=== PATIENT | female | born 1965 | race Caucasian/White ===

== ENCOUNTER 2020-02-23 07:55 | Outpatient (RCR) | payer BC, SELFPAY ==
--- NOTE | 2020-02-23 09:12 | PTOPEVAL ---
Thank you for referring Montse Tiw[facility] to [facility] The patient is scheduled to be seen for therapy? __2_x/week for 12 vis. Please review, sign, date and return this plan of care SOHA. I agree with and certify that the following plan of care is medically necessary. Referring Physician Date Admitting Provider: Attending Provider: TREY THOMAS Referring Provider: *PT Outpatient Evaluation Start: 02/23/20 07:56 Freq: Status: Active Protocol: Document 02/23/20 07:56 MARILYNN (Rec: 02/23/20 08:58 MARILYNN [id number]) Therapy Assessment Status Assessment Status Assessment Status Evaluation Evaluation Information Problem Diagnosis s/p ORIF left ankle Onset 12/23/19 Subjective Information Pt. reports that she was going Query Text:As Reported By Patient/ into work and stepped on an Family object. She fell and broke the ankle and had surgery the same day. She states that she has been NWB until . She reports that she has a scooter she uses outside the home and has been putting a littel weight through the leg in the home. She reports that the longest duration she has been upright is about 5 minutes. Pt. reports that she was walking or riding a bike daily before her injury. She reports that her goal is to return to walking normally. 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 Activity of Daily Living Ability Independent Indoor/Home Mobility Independent Community Mobility Independent Stairs Ability Independent Functional Cognition (Planning, Shopping Independent , Taking Medications) Cooking Yes Cleaning Yes Laundry Yes Shopping Yes Driving Yes Pain Assessment Timing of Pain Assessment Timing of Pain Assessment Pre-Treatment Pain Scale Pain Scale Used Numeric (1 - 10) Self Report Pain Assessment Left Ankle(s) Reported Pain Level 0 Pain Description Aching Pain Frequency Intermittent Lowest Pain Intensity 0 Greatest Pain Intensity 4 Pain Aggravating Factors Walking,Weight Bear
--- NOTE | 2020-02-23 09:13 | PTOPEVAL ---
Thank you for referring Montse Tiwari to [facility].? The patient is scheduled to be seen for therapy? __2__x/week for 12 visits. Please review, sign, date and return this plan of care SOHA. I agree with and certify that the following plan of care is medically necessary. Referring Physician Date Admitting Provider: Attending Provider: TREY THOMAS Referring Provider: *PT Outpatient Evaluation Start: 02/23/20 07:56 Freq: Status: Active Protocol: Document 02/23/20 07:56 MARILYNN (Rec: 02/23/20 08:58 MARILYNN [email or web address]) Therapy Assessment Status Assessment Status Assessment Status Evaluation Evaluation Information Problem Diagnosis s/p ORIF left ankle Onset 12/23/19 Subjective Information Pt. reports that she was going Query Text:As Reported By Patient/ into work and stepped on an Family object. She fell and broke the ankle and had surgery the same day. She states that she has been NWB until . She reports that she has a scooter she uses outside the home and has been putting a littel weight through the leg in the home. She reports that the longest duration she has been upright is about 5 minutes. Pt. reports that she was walking or riding a bike daily before her injury. She reports that her goal is to return to walking normally. 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
--- NOTE | 2020-03-31 08:42 | PTOPEVAL ---
Thank you for referring Montse Tiwari to [facility].? The patient is scheduled to be seen for therapy? __2__x/week for 5 visits. Please review, sign, date and return this plan of care SOHA. I agree with and certify that the following plan of care is medically necessary. Referring Physician Date Admitting Provider: Attending Provider: TREY THOMAS Referring Provider: *PT Outpatient Evaluation Start: 02/23/20 07:56 Freq: Status: Active Protocol: Document 03/31/20 07:25 MARILYNN (Rec: 03/31/20 08:42 MARILYNN [email or web address]) Therapy Assessment Status Assessment Status Assessment Status Re-evaluation Evaluation Information Problem Diagnosis s/p ORIF left ankle Subjective Information Pt. reports that her pain is Query Text:As Reported By Patient/ minimal. She states that she Family still feels stiffness with described dorsiflexion. She reports that she would like to continue to attempt to improve ROM in the left ankle. Pain Assessment Timing of Pain Assessment Timing of Pain Assessment Pre-Treatment Pain Scale Pain Scale Used Numeric (1 - 10) Self Report Pain Assessment Left Ankle(s) Reported Pain Level 1 Pain Score Pain Score 1: Self Report Interventions Used Interventions Used By Clinicians Activity or ADL's,Exercise Lower Extremity Range of Motion General Lower Extremity Range of Motion Gross Lower Extremity Range of Motion left ankle dorsiflexion AROM - Comments 3 degrees left ankle plantarflexion AROM 59 degrees left ankle inversion AROM 39 degrees left ankle eversion AROM 9 degrees Pt. presents with bony end feel with passive ankle dorsiflexion on this date. Gait Assessment Gait Assessment Additional Ambulation Comments Pt. ambulates over level surface demonstrating compensatory hip rotation during left stance phase due to lack of adequate dorsiflexion on the left. Stair Climbing Assessment Stair Climbing Assessment Stair Climbing Comments Pt. continues to demonstrate inability to accurately descend steps leading with the right l.e. due to inadequate ankle dorsiflexion AROM. General Exercise General Exercises
--- NOTE | 2020-04-20 09:05 | PTOPEVAL ---
Thank you for referring Montse Tiwari to [facility].? The patient is scheduled to be seen for therapy? ____x/week for ___ weeks. Please review, sign, date and return this plan of care SOHA. I agree with and certify that the following plan of care is medically necessary. Referring Physician Date Admitting Provider: Attending Provider: TREY THOMAS Referring Provider: KAPIL Outpatient Evaluation Start: 02/23/20 07:56 Freq: Status: Active Protocol: Document 04/20/20 07:31 ACR (Rec: 04/20/20 08:59 ACR [email or web address]) Therapy Assessment Status Assessment Status Assessment Status Discharge Evaluation Information Problem Diagnosis L ORIF of ankle Subjective Information Patient states that she is Query Text:As Reported By Patient/ about 60-70% improved since Family the beginning of therapy. She states she continues to have difficulty navigating the stairs and walking longer distances. She states that she doesn't trust her balance enough to get on her bike at the moment. Patient states that she would like to continue her exercises at home for a bit since she is seeing progress. Pain Assessment Timing of Pain Assessment Timing of Pain Assessment Assessment Pain Scale Pain Scale Used Numeric (1 - 10) Self Report Pain Assessment Left Ankle(s) Reported Pain Level 1 Greatest Pain Intensity 2 Pain Score Pain Score 1: Self Report Interventions Used Interventions Used By Clinicians Activity or ADL's,Education, Exercise Lower Extremity Range of Motion Ankle/Foot Range of Motion Left Ankle Dorsiflexion With Knee Extension 4 Range of Motion - Active Ankle Dorsiflexion With Knee Extension 6 Range of Motion - Passive Ankle Plantarflexion Range of Motion - 59 Active Query Text: Ankle Eversion Range of Motion - Active 20 Ankle Inversion Range of Motion - Active 35 Lower Extremity Muscle Strength Testing General Lower Extremity Strength Gross Lower Extremity Strength L ankle DF: 4+/5 L ankle PF: 5/5 L ankle inversion 4+/5 L ankle eversion 4+/5 Gait Assessment Gait Assessment Additional Ambulation Comments Patient ambulates 1000 ft with no AD, slower charanjit, but no antalgia. She has a good st
== END 2020-04-20 10:40 | disposition home or self-care (01) ==
LOC: CHSPT 07:55
DX: S82.852D Displaced trimalleolar fracture of left lower leg, subsequent encounter for closed fracture with routine healing (principal)
CPT/HCPCS: 97110; 97112; 97116; 97140; 97161

== ENCOUNTER 2024-10-22 08:13 | Emergency (ER) | payer BC, SELFPAY ==
[2024-10-22 08:18] VITALS: BP 182/97; PULSE 114; RESP 20; TEMP 37.4; O2SAT 96
--- NOTE | 2024-10-22 08:18 | ED.URI ---
HPI - URI/Sore Throat General Chief Complaint: Upper Respiratory Infection Stated Complaint: head congestion/cough Time Seen by Provider: 10/22/24 08:25 Source: patient and RN notes reviewed Mode of arrival: ambulatory Limitations: no limitations History of Present Illness HPI Narrative: 59-year-old female presents to the [facility] with complaints of head congestion and a cough since yesterday. Denies fevers. Denies sore throat or ear pain just feels congestion Took 1 dose of NyQuil last night Onset (ago): day(s) (1) Exacerbating factors: nothing Relieving factors: nothing Related Data Allergies Allergy/AdvReac Type Severity Reaction Status Date / Time No Known Allergies Allergy Verified 10/22/24 08:22 Review of Systems Review of Systems: All systems reviewed & are unremarkable except as noted in HPI and below Constitutional: Constitutional: Reports no additional constitutional complaints ENT: Reports as per HPI and Reports nasal congestion Cardiovascular: Cardiovascular: Reports no additional cardiovascular complaints, Denies chest pain and Denies dyspnea Respiratory: Respiratory: Reports as per HPI, Denies chest congestion, Reports cough and Denies dyspnea Musculoskeletal: Musculoskeletal: Reports no additional musculoskeletal complaints Integumentary/Breasts: Skin/Breast: Reports system reviewed and no additional complaints, except as docu PMFSH Comments At the time of my signature, I reviewed and agree with the nursing past medical, surgical, social, and family history. There is no relevant family history pertinent to the patient complaint. Exam Const: General: cooperative, healthy appearing, comfortable, no acute distress, well developed, alert and well nourished Nutritional Appearance: well nourished Orientation/consciousness: patient oriented x3 Limitations: no limitations HENMT: Head: normal to inspection Ears: hearing grossly normal bilaterally, external ears normal, TM's normal bilaterally, EAC's normal, mastoids normal and no periauricular adenopathy Face/Nose/Sinus: Normal external nose present, Normal nares present and No nasal discharge present Mouth: Yes Normal oral and palatal mucosa present, Yes lip normal, Yes tongue normal and Yes moist mucous membranes Throat: posterior oropharynx normal, tonsils normal, uvula midline, postnasal drainage and no uvular edema Eyes: General: appearance normal, both eyes and all related structures Alignment and Position: alignment normal Neck: Neck: normal visual inspection, full ROM, no lymphadenopathy and no meningeal signs Chest: Chest palpation & inspection: normal inspection of the chest Resp: Effort & Inspection: normal respiratory effort and able to speak in complete sentences Auscultation: clear to auscultation bilaterally, no crackles, no rales, no rhonchi and no wheezes Cardio: Rate: regular rate Skin: General skin exam: normal color and no rashes or lesions noted Neuro: General: patient oriented x3, gait normal, moves all extremities and no meningeal signs Cognition (Neuro): normal cognition Speech: normal speech Gait exam (Neuro): Normal gait present Extrem: General: normal to inspection, full ROM, capillary refill normal and normal gait Psych: Appearance: grossly normal and well kempt Mental Status: mental status grossly normal Speech and movement: Normal speech and movement present and Clear speech present Affect: normal affect Attitude: cooperative Course Course Level of Care: Express Care Visit Vital Signs Vital signs: Vital Signs Temperature 99.4 F 10/22/24 08:18 Pulse Rate 114 H 10/22/24 08:18 Respiratory Rate 20 10/22/24 08:18 Blood Pressure 182/97 H 10/22/24 08:18 Pulse Oximetry 96 10/22/24 08:18 Oxygen Delivery Room Air 10/22/24 08:18 Temperature 99.4 F 10/22/24 08:18 Pulse Rate 114 H 10/22/24 08:18 Respiratory Rate 20 10/22/24 08:18 Blood Pressure 182/97 H 10/22/24 08:18 Pulse Oximetry 96 10/22/24 08:18 Oxygen Delivery Room Air 10/22/24 08:18 Reviewed MDM - URI/Sore Throat MDM Narrative Medical decision making narrative: Patient sitting comfortably in exam room. Patient is nontoxic, vitals stable. Patient presents with URI symptoms since yesterday afternoon. No acute findings other than postnasal drainage noted on exam. Discussed elevated blood pressure reading, primary care provider sheets given Patient is appropriate for outpatient treatment with close follow-up Discharge instructions reviewed with patient, as well as provided in writing per nursing staff. The instructions also include specific and strict return/GO TO THE ER as well as f/u information. All questions have been answered, and the patient deny any further questions with discharge and discharge plan. Some parts of this dictation were generated by voice recognition software and may contain typographical and/or grammatical inaccuracies. Differential Diagnosis Differential diagnosis: Likely upper respiratory infection, otitis media, sinusitis, viral infection, bronchitis, influenza and pharyngitis Critical Care Time Critical Care Time Critical Care Time: No Discharge Plan Discharge Clinical Impression: Upper respiratory infection, Post-nasal drainage Patient Disposition: Home Condition: Stable Instructions: Upper Respiratory Infection (ED), Postnasal Drip (DC) Additional Instructions: Today your blood pressure was 182/97. It is highly recommended you follow-up with your primary care provider within 2 weeks to have this rechecked. Untreated or undertreated blood pressure can lead to more serious health issues Your symptoms are likely due to a viral illness, which is not treated with antibiotics. Typically viral infections last 7-10 days, can linger for couple of weeks. It is very important to treat your symptoms. Drink plenty of water, Gatorade, Pedialyte, ice pops or Jell-O. -Alternate Tylenol and Motrin per package directions for fever or pain. You can alternate every 4 hours -Antihistamine medication such as Zyrtec/Claritin/Mayela during the day can help improve symptoms. -doing daily nasal irrigations can help relieve pressure your sinuses. Things like a Neti pot -Use Flonase twice a day for 5 days then daily to help reduce the inflammation and dry up your sinuses. -You can also use Coricidin HBP or Mucinex that is safe with blood pressure issues.. Be sure to drink plenty of water with this medication at least 8 ounces with every dose and it is important to drink 8 to 10 glasses of water per day. Water is a natural decongestant -Eat and drink things that are easy to swallow, like tea or soup, or popsicles. -Oral rinses such as: Salt water gargles and/or may use topical anesthetic (eg. Chloraseptic spray) or lozenges to relieve dryness or throat pain). -Frequent hand washing or hand quality control projectionist is one of the best ways to prevent spread of infection. -Using a vaporizer or humidifier at night will also help thin secretions and help with coughing up phlegm. -Follow up with primary care provider in 7-10 days if condition is not improving - For new or worsening symptoms go directly to the nearest ER Patient Language: Ivorian Follow-up/Referrals: PHYSICIAN,BRATTICE BUILDER [Primary Care Provider, Internal Medicine] Stand Alone Forms: Work/School Release IP Time of Disposition: 08:34
--- OUTSIDE RECORDS SUMMARY | 2024-10-22 08:34 | XMS_ITS | Clinical Summary ---
Author Organization [facility] [place] [address] Care Team Providers Care Retail Service Specialist Name Role Phone No, Physician Primary Care Provider Allergies Active Allergy Reactions Criticality Noted Date Comments Latex Itching,Rash Medium 04/09/2017 Medications fluticasone propionate (FLONASE) 50 mcg/actuation nasal sprayIndication s:Right acute serous otitis media, recurrence not specified Administer 2 sprays into each nostril daily 3 each 3 Active Active Problems Problem Noted Date Diagnosed Date Age-related osteoporosis wit hout current pathological fracture 01/20/2024 Family history of colon cancer in mother 021 Overview (12/27/2020): Added automatically from request for surgery [id number] Encounter for screening colonoscopy 12/27/2020 Overview (12/27/2020): Added automatically from request for surgery [id number] Closed trimalleolar fracture of left ankle 12/22 Personal history of other malignant neoplasm of skin 04/09/2017 Disorder of bone and cartilage 05/09/2015 Overview (02/18/2020): Note: Unchanged Leiomyoma of uterus 05/25/2009 Overview (02/18/2020): Note: Unchanged Encounters Date Type Department Care Team Description 10/19/2024 2:30 PM CDT [facility] [address] [place] [phone] Age-related osteoporosis without current pathological fracture (Primary Dx) 09/28/[address] [place] [phone] Shannon Paulson RN 09/24/[address] [place] [phone] Jamal Wayne MD 09/23/2024 Orders Only [address] [place] [phone] Jamal Wayne MD 09/17/[address] [place] [phone] Jamal Wayne MD from Last 3 Months Immunizations Immunization Administration Dates Next Due Influenza, Quadrivalent, Spl it, Preservative Free, Intramuscular 12/24/2019 Influenza, Unspecified 02/15/2018 Surgical History Surgery Date Site/Laterality Comments TUBAL LIGATION 02/12/2004 - 02/10/2005 Bilateral tubal ligation COLONOSCOPY 03/14/2015 - 04/11/2015 CHOLECYSTECTOMY OOPHERECTOMY ANKLE SURGERY Left broken lt ankle, hardware inserted Medical History Medical History Date Comments Hx Other Medical Skin / 2001 can cer Colon polyp Cancer (HCC) skin cancer erasmo rekha from nose. Basal cell carcinoma Family History Medical History Relation Name Comments Lung cancer Father Breast cancer Maternal Grandmother Colon cancer Mother Breast cancer Mother's Sister Relation Name Status Comments Father Maternal Grandmother Mother Mother's Sister Social History Tobacco Use Types Packs/Day Years Used Date Smoking Tobacco: Never Smokeless Tobacco: Never AUDIT-C Answer Date Recorded Q1: How often do you have a drink containing alc ohol? 2-4 times a month 04/26/2021 Q2: How many drinks containi ng alcohol do you have on a typical day when you are drinking? 1 or 2 04/26/2021 Q3: How often do you have si x or more drinks on one occasion? 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 [employer] Gender Identity Female 02/20/2021 2:35 PM [employer] PERSON [employer] Sexual Orientation Not on file Obstetrics History Para Term AB IAB SAB Ectopic Multiple Livin g Live Births 3 3 3 Date Outcome GA Total Labor Labor/2nd/3rd Weight Sex Type Anes PTL Mallika A1 A5 Name Clin Term Term Term Last Filed Vital Signs Vital Sign Reading Time Taken Comments Blood Pressure 152/81 10/19/2024 2:36 PM CDT Pulse 73 10/19/2024 2:36 PM CDT Temperature 36.2 C (97.1 F) 10/19/2024 2:36 PM CDT Respiratory Rate 18 10/19/2024 2:36 PM CDT Oxygen Saturation 97% 10/19/2024 2:36 PM CDT Inhaled Oxygen Concentration - - Weight 74.8 kg (164 lb 14.5 oz) 05/29/2024 3:11 PM CDT Height 152.4 cm (5') 05/29/2024 3:11 PM CDT Body Mass Index 32.21 05/29/2024 3:11 PM CDT Plan of Treatment Health Maintenance Due Date Last Done Comments Cervical Cancer Screening 1965 Depression Screening 1965 Hepatitis C Screening 1965 DTaP/Tdap/Td Vaccine (1 - Tdap) 06/05/1975 Hepatitis B Screening 1982 Regular Well Visit/Exam 18-64 1982 Zoster Vaccine (1 of 2) 2014 Influenza Vaccine (#1) 2024 12/24/2019, 2018 Breast Cancer Screening-Mammogram 05/29/2025 05/29/2024, 04/02/2023, 03/08/2015, Additional history exists Colon Cancer Screening-Colonoscopy 04/28/2031 04/27/2021, 04/04/2015, 04/04/2015 Pneumococcal vaccine <65 Aged Out No longer eligible based on patient's age to complete this topic Medical Devices Implanted Type Area Network Systems Integrator Device Identifier Shelf Expiration Date Model / Serial / Lot [employer]o [id number] 2.7mm 4.5mm 22mm Self Retaining Screwdriver Self Tap Flat Head - [id number] Implanted:Qty: 1 on 12/23/2019 by Faby Shah MD at [facility] Left: Ankle [employer]Or tho [id number] / / [employer] [id number] 4mm 4.5mm 10mm Self Retaining Screwdriver Tap T8 Full Thread - [id number] Implanted:Qty: 1 on 12/23/2019 by Faby Shah MD at [facility] Left: Ankle [employer] tho [id number] / / [employer] [id number] Evos Mini 4mm 4.5mm 38mm Variable Angle Self Retaining - [id number] Implanted:Qty: 1 on 12/23/2019 by Faby Shah MD at [facility] Left: Ankle [employer] tho [id number] / / [employer] [id number] Evos [id number] 8x1.8mm 9 Hole Low Profile Variable Angle Lock - [id number] Implanted:Qty: 1 on 12/23/2019 by Faby Shah MD at [facility] Left: Ankle [employer] tho [id number] / / [employer] [id number] Evos 3.5mm 75mm Self Tap Cortex Screw Bone Sterile - [id number] Implanted:Qty: 1 on 12/23/2019 by Faby Shah MD at [facility] Left: Ankle [employer] tho [id number] / / [employer] [id number] Evos 3.5mm 24mm Self Tap Cortex Screw Bone Sterile - [id number] Implanted:Qty: 1 on 12/23/2019 by Faby Shah MD at [facility] Left: Ankle [employer] tho [id number] / / [employer] [id number] 2.7mm 4.5mm 26mm Self Retaining Screwdriver Self Tap Flat Head - [id number] Implanted:Qty: 1 on 12/23/2019 by Faby Shah MD at [facility] Left: Ankle [employer] tho [id number] / / [employer] [id number] Evos Mini 71mm 3 Hole Head 9 Hole Shaft Low Profile Variable - [id number] Implanted:Qty: 1 on 12/23/2019 by Faby Shah MD at [facility] Left: Ankle [employer] tho [id number] / / [employer] [id number] 2.7mm 4.3mm 24mm Self Tap Lock T8 2mm Screw Bone Evos - [id number] Implanted:Qty: 1 on 12/23/2019 by Faby Shah MD at [facility] Left: Ankle [employer] tho [id number] / / [employer] [id number] Evos Mini 2.7mm 4.5mm 40mm Self Tap Development Coach Long Bone Small Bone - [id number] Implanted:Qty: 1 on 12/23/2019 by Faby Shah MD at [facility] Left: Ankle [employer] tho [id number] / / [employer] [id number] Evos 3.5mm 12mm Self Tap Cortex Screw Bone Sterile - [id number] Implanted:Qty: 1 on 12/23/2019 by Faby Shah MD at [facility] Left: Ankle [employer] tho [id number] / / [employer] [id number] Evos Mini 2.7mm 4.5mm 20mm Self Tap Cortex T8 Screw Bone - [id number] Implanted:Qty: 1 on 12/23/2019 by Faby Shah MD at [facility] Left: Ankle [employer] tho [id number] / / [employer] [id number] Evos 3.5mm 11mm Self Tap Cortex Screw Bone Sterile - [id number] Implanted:Qty: 1 on 12/23/2019 by Faby Shah MD at [facility] Left: Ankle [employer] tho [id number] / / [employer] [id number] 3.5mm 50mm Self Tap Cortex Screw Bone Nonsterile - [id number] Implanted:Qty: 1 on 12/23/2019 by Faby Shah MD at [facility] Left: Ankle [employer] tho [id number] / / [employer] [id number] 2.7mm 4.3mm 18mm Self Tap Lock Small Bone Long Bone T8 2mm Screw - [id number] Implanted:Qty: 1 on 12/23/2019 by Faby Shah MD at [facility] Left: Ankle [employer] tho [id number] / / [employer]o [id number] Evos 3.5mm 10mm Self Tap Cortex Screw Bone Sterile - [id number] Implanted:Qty: 2 on 12/23/2019 by Faby Shah MD at [facility] Left: Ankle [employer] tho [id number] / / [employer]o [id number] 2.7mm 4.5mm 24mm Self Retaining Screwdriver Self Tap Flat Head - [id number] Implanted:Qty: 1 on 12/23/2019 by Faby Shah MD at [facility] Left: Ankle [employer] tho [id number] / / Explanted Type Area Network Systems Integrator Device Identifier Shelf Expiration Date Model / Serial / Lot [employer] rtho [id number] 3.5mm 50mm Self Tap Cortex Screw Bone Nonsterile - [id number] Explanted:Qty: 1 on 12/23/2019 by Faby Shah MD at [facility] Left: Ankle [employer] [id number] / / [employer] [id number] Evos Mini 2.7mm 4.5mm 38mm Self Tap Cortex T8 Screw Bone Sterile - [id number] Explanted:Qty: 1 on 12/23/2019 by Faby Shah MD at [facility] Left: Ankle [employer] tho [id number] / / [employer] [id number] 2.7mm 4.5mm 26mm Self Retaining Screwdriver Self Tap Flat Head - [id number] Explanted:Qty: 1 on 12/23/2019 by Faby Shah MD at [facility] Left: Ankle [employer] [id number] / / [employer] [id number] 2.7mm 4.5mm 28mm Self Tap Cortex T8 2mm Screw Bone Evos - [id number] Explanted:Qty: 1 on 12/23/2019 by Faby Shah MD at [facility] Left: Ankle [employer] tho [id number] / / [employer] [id number] 2.7mm 4.5mm 30mm Self Retaining Screwdriver Self Tap Flat Head - [id number] Explanted:Qty: 1 on 12/23/2019 by Faby Shah MD at [facility] Left: Ankle [employer] tho [id number] / / [employer]o [id number] 2.7mm 4.5mm 36mm Self Tap Cortex T8 2mm Screw Bone Evos - [id number] Explanted:Qty: 1 on 12/23/2019 by Faby Shah MD at [facility] Left: Ankle [employer]Or tho [id number] / / Procedures Procedure Name Priority Date/Time Associated Diagnosis Comments SCREENING MAMMOGRAM BILATERAL W HARMEET Schedule Routine, Read Routine (OP Routine) 05/29/2024 3:17 PM CDT Encounter for screening mammogram for malignant neoplasm of breast COLONOSCOPY 04/27/2021 7:14 AM CDT from Last 3 Months or Most Recently Relevant to Health Maintenance Results * Screening Mammogram Bilateral W Harmeet (05/29/2024 3:17 PM CDT) Anatomical Region Laterality Modality Breast Bilateral Mammography Impressions 05/29/2024 3:32 PM CDT Bilateral No evidence of malignancy in either breast. OVERALL BI-RADS FINAL ASSESSMENT: 2 - Benign RECOMMENDATION: Recommend bilateral annual screening mammography. Narrative 05/29/2024 3:32 PM CDT EXAMINATION: Screening Mammogram Bilateral W Harmeet: 05/29/2024 COMPARISON: Relevant prior studies available at the time of interpretation were reviewed. TECHNIQUE: Mammography was performed with 2D and digital breast tomosynthesis (DBT) images. CAD was utilized. BREAST PARENCHYMAL COMPOSITION: The breasts are heterogeneously dense, which may obscure small masses. FINDINGS: There are benign-appearing masses in both breasts which have not suspiciously changed. There is no new suspicious finding in either breast on mammogram. us Maria Guadalupe Roberts SUPERVISOR [facility] MAMMO PROCEDURES Final Res ult * COLONOSCOPY (04/27/2021 7:14 AM CDT) Anatomical Region Laterality Modality Other Narrative Procedure Note Demetrius Carrion MD - 04/27/2021 7:14 AM CDT [facility] Patient Name: Montse Tiwari Procedure Date: 04/27/2021 7:14 AM Date of : 1965 Admit Type: Outpatient Age: 55 Gender: Female Attending MD: Demetrius Carrion M.D. Room: [facility] ENDOSCOPY ROOM 2 Note Status: Finalized Patient Profile: Refer to note in patient chart for documentation of history and physical. Procedure: Colonoscopy Indications: High risk colon cancer surveillance: Personalhistory of colonic polyps, Family history of colon cancerin a first-degree relative before age 60 years, Last colonoscopy: March 2015 Referring MD: Providers: Demetrius Carrion M.D. Impression: - Hemorrhoids found on perianal exam. - The entire examined colon is normal. - No specimens collected. Recommendation: - Discharge patient to home. - Resume previous diet. - Continue present medications. - Repeat colonoscopy in 5 years for surveillance. - Return to primary care physician as previously scheduled. Medicines: Propofol per Anesthesia Complications: No immediate complications. Estimated Blood Loss: Estimated blood loss: none. Procedure: Pre-Anesthesia Assessment: - This assessment was completed [Time ofAssessment] prior to the administration of sedation. The benefits, risks and alternatives of theprocedure and sedation were discussed and informed consentwas obtained. All questions were answered. Please referto the signed informed consent document in the medical record. The bowel preparation used was Miralax and bisacodyl tablets via single dose instruction. The scope was passed under direct vision. The Pediatric Colonoscope [id number] was introducedthrough the anus and advanced to the the cecum, identifiedby appendiceal orifice and ileocecal valve. The colonoscopy was performed without difficulty. The patient tolerated the procedure well. The qualityof the bowel preparation was excellent. The ileocecal valve, appendiceal orifice, and rectum were photographed. Findings: Hemorrhoids were found on perianal exam. The colon (entire examined portion) appeared normal. Electronically signed by Demetrius Carrion M.D. Demetrius Carrion M.D. 04/27/2021 8:04:10 AM Number of Addenda: 0 Note Initiated On: 04/27/2021 7:14 AM Procedure Code(s): --- Professional --- G0105, Colorectal cancer screening; colonoscopy on individual at high risk Diagnosis Code(s): --- Professional --- Z80.0, Family history of malignant neoplasm of digestive organs K64.9, Unspecified hemorrhoids Z86.010, Personal history of colonic polyps CPT copyright 2020 [employer]. All rights reserved. The codes documented in this report are preliminary and upon supervisor finishing room reviewmay be revised to meet current compliance requirements. Recognized by the [employer] for promoting quality in endoscopy Demetrius Carrion MD ENDOSCOPY PROCEDURES Final Re sult from Last 3 Months or Most Recently Relevant to Health Maintenance Insurance Partnered OOS Member Subscriber Plan / Payer (Ef fective 2011-Present) Name:Montse Tiwari Relation to Subscriber:Self Name:Montse Tiwari Payer ID:[id number] (NAIC) Type:[employer] Address: [facility] [id number] [id number] [employer] ACC[employer] OOS Advance Directives For more information, please contact: [phone] * Full Code (Latest Code Status on File) Date Activated Date Inactivated Comments 04/27/2021 7:24 AM 04/27/2021 12:57 PM * Full Code Date Activated Date Inactivated Comments 04/27/2021 7:24 AM 04/27/2021 7:24 AM * Full Code Date Activated Date Inactivated Comments 12/23/2019 10:23 PM 12/25/2019 4:10 PM Care Teams Retail Service Specialist Relationship Specialty Start Date End Date No, Physician PCP - General 12/03/22
== END 2024-10-22 08:42 | disposition home or self-care (01) ==
PROVIDERS: Emergency Provider Nurse Practitioner
DX: J06.9 Acute upper respiratory infection, unspecified (principal); R09.82 Postnasal drip
CPT/HCPCS: 99202; G0463

== ENCOUNTER 2025-02-05 10:44 | Emergency (ER) | payer BC, SELFPAY ==
--- OUTSIDE RECORDS SUMMARY | 2025-02-05 10:47 | XMS_ITS | Clinical Summary ---
Author Organization [facility] Address [address] [place] [address] Care Team Providers Care Physiological Chemist Name Role Phone No, Physician Primary Care Provider [phone] Allergies Active Allergy Reactions Criticality Noted Date [...] (12/27/2020): Added automatically from request for surgery [id number] Encounter for screening colonoscopy 12/27/2020 Overview (12/27/2020): Added automatically from request for surgery [id number] Closed trimalleolar fracture of left ankle 12/22 Personal history of other malignant neoplasm of skin 04/09/2017 Disorder of bone and cartilage 05/09/2015 Overview (02/18/2020): Note: Unchanged Leiomyoma of uterus 05/25/2009 Overview (02/18/2020): Note: Unchanged Immunizations Immunization Administration Dates Next Due Influenza, [...] on file 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 Gender Identity Female 02/20/2021 2:35 PM FLOOR SPACE ALLOCATOR Sexual Orientation Not on file Obstetrics History [...] this topic Medical Devices Implanted Type Area Motor Equipment Lieutenant Device Identifier Shelf Expiration Date Model / Serial / Lot [employer] rtho [id number] 2.7mm 4.5mm 22mm Self Retaining Screwdriver Self Tap Flat Head - [id number] Implanted:Qty: 1 on 12/23/2019 by Faby Shah MD at [facility] Left: Ankle [employer]Or tho [id number] / / [employer]o [id number] 4mm 4.5mm 10mm Self Retaining Screwdriver Tap T8 Full Thread - [id number] Implanted:Qty: 1 on 12/23/2019 by Faby Shah MD at [facility] Left: Ankle [employer]Or tho [id number] / / [employer] r[employer]o [id number] Evos Mini 4mm 4.5mm 38mm Variable Angle Self Retaining - [id number] Implanted:Qty: 1 on 12/23/2019 by Faby Shah MD at [facility] Left: Ankle [employer]Or tho [id number] / / [employer] r[employer]o [id number] Evos [id number] 8x1.8mm 9 Hole Low Profile Variable Angle Lock - [id number] Implanted:Qty: 1 on 12/23/2019 by Faby Shah MD at [facility] Left: Ankle [employer]Or tho [id number] / / [employer] r[employer]o [id number] Evos 3.5mm 75mm Self Tap Cortex Screw Bone Sterile - [id number] Implanted:Qty: 1 on 12/23/2019 by Faby Shah MD at [facility] Left: Ankle [employer]Or tho [id number] / / [employer] r[employer]o [id number] Evos 3.5mm 24mm Self Tap Cortex Screw Bone Sterile - [id number] Implanted:Qty: 1 on 12/23/2019 by Faby Shah MD at [facility] Left: Ankle [employer]Or tho [id number] / / [employer] r[employer]o [id number] 2.7mm 4.5mm 26mm Self Retaining Screwdriver Self Tap Flat Head - [id number] Implanted:Qty: 1 on 12/23/2019 by Faby Shah MD at [facility] Left: Ankle [employer]Or tho [id number] / / [employer] rtho [id number] Evos Mini 71mm 3 Hole Head 9 Hole Shaft Low Profile Variable - [id number] Implanted:Qty: 1 on 12/23/2019 by Faby Shah MD at [facility] Left: Ankle [employer]Or tho [id number] / / [employer]o [id number] 2.7mm 4.3mm 24mm Self Tap Lock T8 2mm Screw Bone Evos - [id number] Implanted:Qty: 1 on 12/23/2019 by Faby Shah MD at [facility] Left: Ankle [employer]Or tho [id number] / / [employer] rtho [id number] Evos Mini 2.7mm 4.5mm 40mm Self Tap System Archive Analyst Long Bone Small Bone - [id number] Implanted:Qty: 1 on 12/23/2019 by Faby Shah MD at [facility] Left: Ankle [employer]Or tho [id number] / / [employer] rtho [id number] Evos 3.5mm 12mm Self Tap Cortex Screw Bone Sterile - [id number] Implanted:Qty: 1 on 12/23/2019 by Faby Shah MD at [facility] Left: Ankle [employer]Or tho [id number] / / [employer] rtho [id number] Evos Mini 2.7mm 4.5mm 20mm Self Tap Cortex T8 Screw Bone - [id number] Implanted:Qty: 1 on 12/23/2019 by Faby Shah MD at [facility] Left: Ankle [employer]Or tho [id number] / / [employer] rtho [id number] Evos 3.5mm 11mm Self Tap Cortex Screw Bone Sterile - [id number] Implanted:Qty: 1 on 12/23/2019 by Faby Shah MD at [facility] Left: Ankle [employer]Or tho [id number] / / [employer]/O rtho [id number] 3.5mm 50mm Self Tap Cortex Screw Bone Nonsterile - [id number] Implanted:Qty: 1 on 12/23/2019 by Faby Shah MD at [facility] Left: Ankle [employer]/Or tho [id number] / / [employer]/O rtho [id number] 2.7mm 4.3mm 18mm Self Tap Lock Small Bone Long Bone T8 2mm Screw - [id number] Implanted:Qty: 1 on 12/23/2019 by Faby Shah MD at [facility] Left: Ankle [employer]/Or tho [id number] / / [employer] rtho [id number] Evos 3.5mm 10mm Self Tap Cortex Screw Bone Sterile - [id number] Implanted:Qty: 2 on 12/23/2019 by Faby Shah MD at [facility] Left: Ankle [employer]Or tho [id number] / / [employer] rtho [id number] 2.7mm 4.5mm 24mm Self Retaining Screwdriver Self Tap Flat Head - [id number] Implanted:Qty: 1 on 12/23/2019 by Faby Shah MD at [facility] Left: Ankle [employer]Or tho [id number] / / Explanted Type Area Motor Equipment Lieutenant Device Identifier Shelf Expiration Date Model / Serial / Lot [employer]Rich[employer]/O rtho [id number] 3.5mm 50mm Self Tap Cortex Screw Bone Nonsterile - [id number] Explanted:Qty: 1 on 12/23/2019 by Faby Shah MD at [facility] Left: Ankle [employer]Or tho [id number] / / [employer] rtho [id number] Evos Mini 2.7mm 4.5mm 38mm Self Tap Cortex T8 Screw Bone Sterile - [id number] Explanted:Qty: 1 on 12/23/2019 by Faby Shah MD at [facility] Left: Ankle [employer]Or tho [id number] / / [employer] r[employer]o [id number] 2.7mm 4.5mm 26mm Self Retaining Screwdriver Self Tap Flat Head - [id number] Explanted:Qty: 1 on 12/23/2019 by Faby Shah MD at [facility] Left: Ankle [employer]/Or tho [id number] / / [employer] rtho [id number] 2.7mm 4.5mm 28mm Self Tap Cortex T8 2mm Screw Bone Evos - [id number] Explanted:Qty: 1 on 12/23/2019 by Faby Shah MD at [facility] Left: Ankle [employer]/Or tho [id number] / / [employer] rtho [id number] 2.7mm 4.5mm 30mm Self Retaining Screwdriver Self Tap Flat Head - [id number] Explanted:Qty: 1 on 12/23/2019 by Faby Shah MD at [facility] Left: Ankle [employer]/Or tho [id number] / / [employer] rtho [id number] 2.7mm 4.5mm 36mm Self Tap Cortex T8 2mm Screw Bone Evos - [id number] Explanted:Qty: 1 on 12/23/2019 by Faby Shah MD at [facility] Left: Ankle [employer]Rich[employer]/Or tho [id number] / / Procedures Procedure Name Priority Date/Time [...] either breast on mammogram. us Maria Guadalupe BhumikaSusy Roberts DIRECTOR [employer] IMG MAMMO PROCEDURES Final Res ult * COLONOSCOPY (04/27/2021 7:14 AM CDT) Anatomical Region Laterality Modality Other Narrative Procedure Note Demetrius Carrion MD - 04/27/2021 7:14 AM CDT [facility] Patient Name: Montse Tiwari Procedure Date: 04/27/2021 7:14 AM Date of : 1965 Admit Type: Outpatient Age: 55 Gender: Female Attending MD: Demetrius Carrion M.D. Room: [facility] 2 Note Status: Finalized Patient [...] under direct vision. The Pediatric Colonoscope PCF-H190L [id number] was introducedthrough the anus and advanced to [...] history of colonic polyps CPT copyright 2020 [employer]. All rights reserved. The codes documented in this report are preliminary and upon busboy reviewmay be revised to meet current compliance requirements. Recognized by the [place] for promoting quality in endoscopy us Demetrius Carrion MD ENDOSCOPY PROCEDURES Final Re sult from Last 3 Months or Most Recently Relevant to Health Maintenance Insurance [employer] ACCESS OOS [employer] O[employer] ACCESS OOS Advance Directives For more information, please contact: [phone] * Full Code (Latest Code Status on File) Date Activated Date Inactivated Comments 04/27/2021 7:24 AM 04/27/2021 12:57 PM * Full Code Date Activated Date Inactivated Comments 04/27/2021 7:24 AM 04/27/2021 7:24 AM * Full Code Date Activated Date Inactivated Comments 12/23/2019 10:23 PM 12/25/2019 4:10 PM Care Teams Physiological Chemist Relationship Specialty Start Date End Date No, Physician PCP - General 12/03/22
--- OUTSIDE RECORDS SUMMARY | 2025-02-05 10:47 | XMS_ITS | Clinical Summary ---
Author Organization [facility] Address [address] [place] [address] Care Team Providers Care Art History Professor Name Role Phone Alice Dickerson ASSIGNMENT CLERK Primary Care Provider [phone] Allergies No known active allergies Medications denosumab (PROLIA) 60 MG/ML injection Inject 1 mL (60 mg total) into the skin every 6 (six) months. Active tirzepatide (ZEPBOUND) 2.5 MG/0.5ML injectionIndicati ons:Weight Loss Inject 2.5 mg into the skin once a week. Indications : Weight Loss 2 mL 2 5 Active lisinopril (PRINIVIL) 5 MG tabletIndications :Primary hypertension Take 1 tablet (5 mg total) by mouth daily. 30 tablet 1 5 Active lisinopril (PRINIVIL) 5 MG tablet Take 1 tablet (5 mg total) by mouth daily. 5 01/27/20 25 Discontinu ed(Reorder ) Active Problems Problem Noted Date Diagnosed Date Hypertension 01/04/2025 Insulin resistance 01/04/2025 Osteopenia of multiple sites 01/04/2025 Age-related osteoporosis wit hout current pathological fracture 01/20/2024 Conductive hearing loss of l eft ear with unrestricted hearing of right ear 06/27/2023 Family history of colon cancer in mother 021 Overview (01/04/2025): Added automatically from request for surgery [id number] Uterine leiomyoma 05/25/2009 Overview (01/04/2025): Note: Unchanged Leiomyoma of uterus 05/25/2009 Overview (01/04/2025): Note: Unchanged Note: Unchanged Encounters Date Type Department Care Team Description 01/04/2025 10:20 AM X [employer]LECTRON[employer] WIREMAN Office Visit [facility] Medical [facility] - [place] [address] [place], [place] [id number] Alice Dickerson NP New Patient 01/04/2025 Travel 11/25/2024 Scan Physician Referral Network (PRN) INFO SRVCS Scanned, [facility] (SCAN) 11/20/2024 [facility] [place] [address] [place] [address] Alice Dickerson NP Appointment Request from Last 3 Months Immunizations Immunization Administration Dates Next Due Influenza (Generic) 11/27/2024,12/12/2023,2018 Influenza Adult (Generic) 12/24/2019 Family History Medical History Relation Comments Cancer Father Lung cancer Cancer Mother Colon cancer Cancer Paternal Aunt Breast cancer Relation Status Comments Father Mother Paternal Aunt Social History Tobacco Use Types Packs/Day Years Used Date Smoking Tobacco: Never Smokeless Tobacco: Never Tobacco Cessation:Counseling Given: No Alcohol Use Standard Drinks/Week Comments Yes 2 (1 standard drink = 0.6 oz pur e alcohol) PHQ-2 Answer Date Recorded Patient Health Questionnaire-2 Score 0 01/04/2025 Comments No Sex and Gender Information Value Date Recorded Sex Assigned at Not on file Legal Sex Female 3:34 PM CDT Gender Identity Not on file Sexual Orientation Not on file Last Filed Vital Signs Vital Sign Reading Time Taken Comments Blood Pressure 130/90 01/04/2025 10:58 AM X [employer] WIREMAN Pulse 69 01/04/2025 10:16 AM X [employer] ELECT[employer] WIREMAN Temperature 36.3 C (97.4 F) 01/04/2025 10:16 AM X [employer] ELECT[employer] WIREMAN Respiratory Rate 16 01/04/2025 10:16 AM X RAY ELECTRON[employer] WIREMAN Oxygen Saturation 97% 01/04/2025 10:16 AM X R[employer] ELECT[employer] WIREMAN Inhaled Oxygen Concentration - - Weight 74.8 kg (165 lb) 01/04/2025 10:16 AM X [employer] ELECT[employer] WIREMAN Height 152.4 cm (5') 01/04/2025 10:16 AM X RAY ELECTRON[employer] WIREMAN Body Mass Index 32.22 01/04/2025 10:16 AM X RAY ELECTRON[employer] WIREMAN Plan of Treatment Upcoming Encounters Date Type Department Care Team (Late st Contact Info) Description 03/11/2025 4:00 PM X [employer] E[employer] WIREMAN Office Visit [facility] - [place] [address] [place] [address] Alice Dickerson NP [address] [place] [address] Health Maintenance Due Date Last Done Comments Cervical Cancer Screening Pap Smear (Age 30 to 64) Every 3 Years 1965 Colorectal Cancer Screening Colonoscopy (10 Years) 1965 Annual Physical 06/05/1967 Hepatitis C 1982 DTaP, Tdap and Td Vaccines (1 - Tdap) 06/05/1983 Cervical Cancer Screening Pap with HPV Testing (Age 30 to 64) Every 5 Years 1994 Cervical Cancer Screening with HPV 1994 Pneumococcal Vaccine: 50+ Years (1 of 1 - PCV) 2014 Zoster Vaccines (1 of 2) 2014 COVID-19 Vaccine (4 - season) 2024 02/08/2021, 06/21/2020, 05/24/2020 Mammogram Screening 05/29/2026 05/29/2024, 04/02/2023, 03/08/2015 RSV Immunization or 60+ Years (1 - 1-dose 75+ series) 06/05/2039 Influenza Adult Completed 11/27/2024, 11/13, 12/24/2019, Additional history exists PHQ-2 (Physician [place]) Completed 01/04/2025 Hepatitis A Vaccines Aged Out No long er eligible based on patient's age to complete this topic Meningococcal B Vaccine Aged Out No l onger eligible based on patient's age to complete this topic Meningococcal Vaccine Aged Out No amarilis enrike eligible based on patient's age to complete this topic RSV Immunizations Under 20 Months Aged Out No longer eligible based on patient's age to complete this topic Procedures Procedure Name Priority Date/Time Associated Diagnosis Comments OUTSIDE LAB (SCAN ORDER) 11/25/2024 from Last 3 Months Results * OUTSIDE LAB (SCAN ORDER) (11/25/2024) 11/25/2024 us Doc [facility] Scanned SCANNING Final Resu lt from Last 3 Months Insurance [facility] Care Teams Art History Professor Relationship Specialty Start Date End Date Alice Dickerson NP [address] [place] [address] PCP - General NURSE PRACTITIONER 01/04/25
--- OUTSIDE RECORDS SUMMARY | 2025-02-05 10:47 | XMS_ITS | Clinical Summary ---
Author Organization [facility] Address [address] [address] Care Team Providers Care Control Tower Radio Operator Name Role Phone None, Physician Primary Care Provider Unavailabl e Source Comments [facility],non-owned Affiliates and Associated Physician Practices is amultiple site organization consisting of ambulatory clinics and hospital sitesin [place], [place], [place] and [place]. This disclosure is being madepursuant to the Care Everywhere program and may not contain all information available regarding this patient. Last updated 17.[facility] Allergies Active Allergy Reactions Criticality Noted Date Comments Bandaging Tape [Other] Rash,Urticaria Medium 0 Received name: Bandaging Tape Latex Itching,Rash Medium 04/09/2017 Medications * Be aware that medications may not be up to date on this document. Alwaysverify current medications with the patient. neomycin-polymy marisabel-dexameth (Maxitrol) ophthalmic suspension Instill 1 (one) drop into both eyes 4 times daily Active Active Problems Problem Noted Date Diagnosed Date Conductive hearing loss of l eft ear with unrestricted hearing of right ear 06/27/2023 Dysfunction of both eustachian tubes 06/27/2023 Bilateral chronic serous otitis media 06/27/2023 Osteopenia 08/28/2022 12/27/2022 Overview (12/27/2022): Note: Unchanged Encounter for screening colonoscopy 12/27/2020 12/27/2022 Overview (12/27/2022): Added automatically from request for surgery [id number] Family history of colon cancer in mother 021 12/27/2022 Overview (12/27/2022): Added automatically from request for surgery [id number] Closed trimalleolar fracture of left ankle 12/2212/27/2022 Personal history of other malignant neoplasm of skin 04/09/2017 Disorder of bone density and structure, unspecif ied 05/09/2015 12/27/2022 Overview (12/27/2022): Note: Unchanged Note: Unchanged Leiomyoma of uterus 05/25/2009 12/27/2022 Overview (12/27/2022): Note: Unchanged Note: Unchanged Resolved Problems Problem Noted Date Diagnosed Date Resolved Date Impacted cerumen of left ear 06/27/2023 07/11/2023 Immunizations Immunization Administration Dates Next Due INFLUENZA VACCINE 02/15/2018 INFLUENZA VACCINE, QUADR. (F LUZONE; FLULAVAL; FLUARIX; AFLURIA QUADRIVALENT; 6MO+), 0.5 ML (IIV4) 12/24/2019 Family History Medical History Relation Name Comments Cancer - Skin, Non Melanoma Maternal Grandfather Asthma Neg Hx CVA Neg Hx Cancer - Breast Neg Hx Cancer - Other Neg Hx Cancer - Skin, Melanoma Neg Hx Eczema Neg Hx Hemophilia Neg Hx Psoriasis Neg Hx Relation Name Status Comments Maternal Grandfather Social History Tobacco Use Types Packs/Day Years Used Date Smoking Tobacco: Never Smokeless Tobacco: Never Comments Unknown Sex and Gender Information Value Date Recorded Sex Assigned at Not on file Legal Sex Female 5:54 PM CDT Gender Identity Not on file Sexual Orientation Not on file Last Filed Vital Signs Vital Sign Reading Time Taken Comments Blood Pressure - - Pulse - - Temperature - - Respiratory Rate - - Oxygen Saturation - - Inhaled Oxygen Concentration - - Weight 72.6 kg (160 lb) 06/27/2023 4:16 PM CDT Height 152.4 cm (5') 06/27/2023 4:16 PM CDT Body Mass Index 31.25 06/27/2023 4:16 PM CDT Plan of Treatment Health Maintenance Due Date Last Done Comments COLOGUARD (AGES 45-75) - COLON CA SCREENING 1965 CT COLONOGRAPHY - COLON CA SCREENING 1965 FIT - COLON CA SCREENING 1965 FLEX SIG - COLON CA SCREENING 1965 LIPID TESTING 1965 HIV SCREENING 06/05/1979 HEPATITIS C SCREENING 05/31/1982 DTAP/TDAP/TD VACCINES (1 - Tdap) 06/05/1983 PNEUMOCOCCAL VACCINE 50+ (1 of 1 - PCV) 2014 ZOSTER VACCINE (1 of 2) 2014 SCREENING FOR DIABETES 12/04/2022 DEPRESSION SCREENING 02/12/2024 COVID-19 VACCINE (1 - season) 2024 INFLUENZA VACCINE (#1) 2024 12/24/2019, 2018 PAP SMEAR 08/28/2025 08/28/2022, 08/11, 07/19/2021, Additional history exists MAMMOGRAM 05/29/2026 05/29/2024, 05/12, 04/02/2023, Additional history exists COLON MONITORING 04/28/2031 04/27/2021 COLONOSCOPY - COLON CA SCREENING 04/28/2031 04/27/2021 Colorectal Cancer Screening 04/28/2031 Respiratory Syncytial Virus (RSV) Vaccine Pt: or over 60 yrs (1 - 1-dose 75+ series) 06/05/2039 HEPATITIS B VACCINE Aged Out No longe r eligible based on patient's age to complete this topic HIB VACCINE Aged Out No longer eligi ble based on patient's age to complete this topic HPV VACCINE Aged Out No longer eligi ble based on patient's age to complete this topic MENINGOCOCCAL (Group B) VACCINE SHARED DECISION-MAKING Aged Out No longer eligible based on patient's age to complete this topic MENINGOCOCCAL GROUPS A/C/Y/W VACCINE Aged Out No longer eligible based on patient's age to complete this topic Insurance [employer] Care Teams Control Tower Radio Operator Relationship Specialty Start Date End Date None, Physician [address] [place] [address] PCP - General 12/04/22
[2025-02-05 10:53] VITALS: BP 133/80; PULSE 76; RESP 20; TEMP 36.9; O2SAT 98
--- NOTE | 2025-02-05 11:02 | ED.URI ---
HPI - URI/Sore Throat General Chief Complaint: Upper Respiratory Infection Stated Complaint: Cough/Nasal Congesiton Time Seen by Provider: 02/05/25 10:47 Source: patient Mode of arrival: ambulatory Limitations: no limitations History of Present Illness HPI Narrative: Montse is a 59-year-old female patient presenting to the clinic today with complaints of cough, head congestion, nasal congestion times 9 days. She denies any fevers, chills, body aches. States she is blowing out clear nasal drainage in coughing up clear phlegm. Denies any chest pain or shortness of breath. Has taken Mucinex and Coricidin HBP for her symptoms. Related Data Allergies Allergy/AdvReac Type Severity Reaction Status Date / Time No Known Allergies Allergy Verified 02/05/25 10:56 Review of Systems Review of Systems: Pertinent positives per HPI. Patient denies any fever, chills, rash, headache, visual changes, dizziness, shortness of breath, chest pain, palpitations, nausea, vomiting, diarrhea, constipation, abdominal pain, or any urinary issues. PMFSH Comments At the time of my signature, I reviewed and agree with the nursing past medical, surgical, social, and family history. There is no relevant family history pertinent to the patient complaint. Exam Narrative: General: Well-developed, well nourished, in no apparent distress Head: Normocephalic, atraumatic Eyes: Pupils equally round and reactive to light bilaterally, EOM intact, sclera and conjunctive clear, no discharge, lids normal Ears: TMs intact and congested, ear canals clear, no drainage, grossly hearing normal. Nose: Nares patent, clear discharge, mild inflammation, no sinus tenderness. Mouth: Oral pharynx red without lesions or masses, good dentition, MMM. Postnasal drip Neck: Supple, trachea midline, no enlargement of anterior or posterior cervical nodes, no thyroid masses or goiter palpable. Cardio: Regular rate and rhythm, s1 and s2 normal, no murmur appreciated. Resp: Clear to auscultation bilaterally, no rhonchi, rales, wheezing or rubs Course Course Level of Care: Express Care Visit Vital Signs Vital signs: Vital Signs Temperature 36.9 C 02/05/25 10:53 Pulse Rate 76 02/05/25 10:53 Respiratory Rate 20 02/05/25 10:53 Blood Pressure 133/80 02/05/25 10:53 Pulse Oximetry 98 02/05/25 10:53 Oxygen Delivery Room Air 02/05/25 10:53 Temperature 36.9 C 02/05/25 10:53 Pulse Rate 76 02/05/25 10:53 Respiratory Rate 20 02/05/25 10:53 Blood Pressure 133/80 02/05/25 10:53 Pulse Oximetry 98 02/05/25 10:53 Oxygen Delivery Room Air 02/05/25 10:53 MDM MDM Narrative Medical decision making narrative: At the time of visit patient is resting comfortably on the exam table. Patient appears to be nontoxic. complaints of cough, head congestion, nasal congestion times 9 days. She denies any fevers, chills, body aches. States she is blowing out clear nasal drainage in coughing up clear phlegm. Denies any chest pain or shortness of breath. Has taken Mucinex and Coricidin HBP for her symptoms. On exam patient has clear bilateral TMs intact and congested, clear nasal drainage, mild anterior turbinate inflammation, oral pharynx red with postnasal drip, lung sounds are clear, heart rates regular rate and rhythm. Plan: I suspect patient has URI. Patient has had symptoms for 9 days. Will send in prescription for Tessalon Perles and prednisone to help with congestion. No sign of bacterial infection. Supportive measures were discussed with the patient and they voiced understanding discharge instructions and agrees to treatment plan. Return precautions reviewed Differential Diagnosis Differential Diagnosis: Differential diagnostic considerations for upper respiratory infection include upper respiratory infection, croup, otitis media, sinusitis, viral infection, bronchitis, influenza, pharyngitis, strep, uvulitis. Discharge Plan Discharge Clinical Impression: Upper respiratory infection Qualifiers: URI type: unspecified URI Qualified Code(s): J06.9 - Acute upper respiratory infection, unspecified Patient Disposition: Home Condition: Stable Instructions: Antibiotic Form, Cold Symptoms (ED) Additional Instructions: Take prescription medications only as prescribed-prednisone and Tessalon Perles Increase fluids and stay well hydrated May take Tylenol or motrin as directed on bottle for pain/fever May use Flonase 1 spray in each nare daily May take OTC antihistamines such as Zyrtec or Claritin daily as directed on bottle May apply Vicks vapor rub to chest to open sinuses Sinus rinses for congestion Cepacol spray, cough drops, throat lozenges, warm tea with honey/lemon, gargle salt water to soothe throat BRAT diet for diarrhea Clear liquids x 24 hours then advance as tolerated for nausea/vomiting Go to the ED if you develop a worsening in your condition- high fever not controlled by Tylenol or Motrin, dehydration, weakness, lethargy, shortness of breath, or chest pain. Follow up with your PCP in 3-5 days if symptoms persist. Patient Language: [place] Prescriptions: New prednisone 20 mg tablet 40 mg PO DAILY 5 Days Qty: 10 0RF benzonatate 200 mg capsule 200 mg PO TID 7 Days Qty: 21 0RF Follow-up/Referrals: Jayla,Alice Alarcon APRN [Primary Care Provider, Unknown] Time of Disposition: 11:03 Quality NIHSS Nursing Documentation ED NIHSS nursing documentation: reviewed/agree
== END 2025-02-05 11:06 | disposition home or self-care (01) ==
PROVIDERS: Emergency Provider Nurse Practitioner Family; PCP Nurse Practitioner
DX: J06.9 Acute upper respiratory infection, unspecified (principal)
CPT/HCPCS: 99213; G0463